=== PATIENT | male | born 1980 | race Caucasian/White ===

== ENCOUNTER → 2023-12-20 | Outpatient (CLI) | payer BC ==
[2023-12-20 09:41] LABS: HEMATOCRIT 32.7 % (42.0-52.0); HEMOGLOBIN 11.1 g/dL (13.5-18.0); MEAN PLATELET VOLUME 11.1 fl (7.4-10.4); RED BLOOD COUNT 3.33 M/mm3 (4.20-5.60); RED CELL DISTRIBUTION WIDTH 12.2 % (11.5-14.5); WHITE BLOOD COUNT 6.2 K/mm3 (4.8-10.8)
[2023-12-20 09:49] LABS: ALBUMIN 2.6 g/dL (3.5-5.0)
[2023-12-20 09:51] LABS: CALCIUM 8.2 mg/dL (8.3-10.5)
[2023-12-20 09:52] LABS: TOTAL PROTEIN 5.4 g/dL (6.4-8.3)
[2023-12-20 09:54] LABS: TOTAL BILIRUBIN 0.5 mg/dL (0.2-1.2)
[2023-12-20 22:06] LABS: HEPATITIS C ANTIBODY Negative (Negative)
== END ==
LOC: LAB 09:28
PROVIDERS: Family Medicine
DX: R60.1 Generalized edema (principal)

== ENCOUNTER 2023-12-24 18:11 | Emergency (ER) | payer BC ==
[~2023-12-24] VITALS: Ht 190.5 cm; Wt 84.5 kg
[2023-12-24 18:18] VITALS: BP 138/88
[2023-12-24 18:37] LABS: BASO # 0.02 K/mm3 (0.02-0.10); EOS # 0.01 K/mm3 (0.04-0.40); EOS % 0.1 % (0.0-4.0); HEMATOCRIT 30.1 % (42.0-52.0); HEMOGLOBIN 10.1 g/dL (13.5-18.0); LYMPH# 0.94 K/mm3 (1.50-4.00); MEAN CELL VOLUME 98 fl (78-100); MEAN CORPUSCULAR HEMOGLOBIN 33 pg (27-31); MEAN CORPUSCULAR HGB CONC 34 g/dL (33-37); MEAN PLATELET VOLUME 11.1 fl (7.4-10.4); MONO # 0.76 K/mm3 (0.20-0.80); NEU # 5.66 K/mm3 (1.40-6.50); PLATELET COUNT 129 K/mm3 (130-400); RED BLOOD COUNT 3.08 M/mm3 (4.20-5.60); RED CELL DISTRIBUTION WIDTH 11.9 % (11.5-14.5); WHITE BLOOD COUNT 7.4 K/mm3 (4.8-10.8)
[2023-12-24 18:44] LABS: ALBUMIN 2.4 g/dL (3.5-5.0)
[2023-12-24 18:45] LABS: CALCIUM 7.9 mg/dL (8.3-10.5)
[2023-12-24 18:47] LABS: TOTAL PROTEIN 5.1 g/dL (6.4-8.3)
[2023-12-24 18:48] LABS: TOTAL BILIRUBIN 0.8 mg/dL (0.2-1.2)
[2023-12-24] MEDS ORDERED: AMLODIPINE BESYL5 MG PO (21:15)
[2023-12-24] MEDS ORDERED: ZESTRIL20 M1 PO (21:16)
[2023-12-24] MEDS ORDERED: KEPPRA 500MG500 MG PO (21:16)
[2023-12-24] MEDS ORDERED: SODIUM CHLORI1000 M4 PO (21:19)
== END 2023-12-24 20:30 | disposition other institution (70) ==
LOC: ED 18:11
PROVIDERS: Family Medicine
DX: K70.0 Alcoholic fatty liver (principal); L03.116 Cellulitis of left lower limb; L03.115 Cellulitis of right lower limb; E87.1 Hypo-osmolality and hyponatremia; F17.210 Nicotine dependence, cigarettes, uncomplicated

== ENCOUNTER → 2024-01-12 | Outpatient (CLI) | payer BC ==
[~2024-01-12] MED LIST: AMLODIPINE BESYL5 MG PO; DICLOFENAC SOD100 M1 PO; FUROSEMIDE40 MG; KEPPRA 500MG500 MG PO; PANTOPRAZOLE SO40 MG PO; POTASSIUM CHLO20 ME4 PO; SLOW-MAG 106 MG1 ECT PO; SODIUM CHLORI1000 M4 PO; SPIRONOLACTONE50 M1 PO; VITAMIN D21250 MCG PO; VITAMIN D31250 MCG PO; VITAMIN K; VITAMIN K2100 MCG PO; WESTAB PLUS TA1 EACH PO; ZESTRIL20 M1 PO; vitamin d PO
[2024-03-02 12:10] LABS: PARTIAL THROMBOPLASTIN TIME 27.9 SECONDS (21.0-32.0); PROTHROMBIN TIME 14.4 SECONDS (9.0-12.0)
== END ==
LOC: LAB 08:30
PROVIDERS: Internal Medicine
DX: I10 Essential (primary) hypertension (principal); K90.9 Intestinal malabsorption, unspecified; S06.5X0S Traumatic subdural hemorrhage without loss of consciousness, sequela; R23.3 Spontaneous ecchymoses

== ENCOUNTER → 2024-01-28 | Outpatient (CLI) | payer BC ==
[2024-01-28 10:03] LABS: CALCIUM 7.7 mg/dL (8.3-10.5)
[2024-01-28 10:09] LABS: MAGNESIUM 1.52 mg/dL (1.60-2.60)
== END ==
LOC: LAB 09:42
PROVIDERS: Internal Medicine
DX: E83.42 Hypomagnesemia (principal)

== ENCOUNTER → 2024-02-09 | Outpatient (CLI) | payer BC ==
[~2024-02-09] MED LIST changes: -DICLOFENAC SOD100 M1 PO; -FUROSEMIDE40 MG; -PANTOPRAZOLE SO40 MG PO; -POTASSIUM CHLO20 ME4 PO; -SLOW-MAG 106 MG1 ECT PO; -SPIRONOLACTONE50 M1 PO; -VITAMIN D21250 MCG PO; -VITAMIN D31250 MCG PO; -VITAMIN K; -VITAMIN K2100 MCG PO; -WESTAB PLUS TA1 EACH PO; -vitamin d PO
[2024-02-09 08:25] LABS: BASO # 0.02 K/mm3 (0.02-0.10); EOS # 0.06 K/mm3 (0.04-0.40); HEMATOCRIT 28.4 % (42.0-52.0); HEMOGLOBIN 9.9 g/dL (13.5-18.0); LYMPH# 1.35 K/mm3 (1.50-4.00); MEAN CELL VOLUME 91 fl (78-100); MEAN CORPUSCULAR HEMOGLOBIN 32 pg (27-31); MEAN CORPUSCULAR HGB CONC 35 g/dL (33-37); MEAN PLATELET VOLUME 10.5 fl (7.4-10.4); MONO # 0.41 K/mm3 (0.20-0.80); NEU # 4.03 K/mm3 (1.40-6.50); PLATELET COUNT 133 K/mm3 (130-400); RED BLOOD COUNT 3.13 M/mm3 (4.20-5.60); RED CELL DISTRIBUTION WIDTH 13.2 % (11.5-14.5); WHITE BLOOD COUNT 5.9 K/mm3 (4.8-10.8)
[2024-02-09 08:30] LABS: ALBUMIN 2.4 g/dL (3.5-5.0)
[2024-02-09 08:32] LABS: CALCIUM 7.7 mg/dL (8.3-10.5)
[2024-02-09 08:33] LABS: TOTAL PROTEIN 5.4 g/dL (6.4-8.3)
[2024-02-09 08:35] LABS: TOTAL BILIRUBIN 0.6 mg/dL (0.2-1.2)
[2024-02-10 15:28] LABS: MAGNESIUM 1.4 mg/dL (1.60-2.60)
== END ==
LOC: LAB 08:14
PROVIDERS: Internal Medicine
DX: I10 Essential (primary) hypertension (principal)

== ENCOUNTER 2024-02-19 09:11 | Emergency (ER) | payer BC ==
[~2024-02-19] VITALS: Ht 190.5 cm; Wt 68.7 kg
[2024-02-19] MEDS ORDERED: DICLOFENAC SOD100 M1 PO (09:48)
[2024-02-19] MEDS ORDERED: POTASSIUM CHLO20 ME4 PO (09:48)
[2024-02-19 10:15] LABS: CALCIUM 7.6 mg/dL (8.3-10.5)
[2024-02-19 10:23] LABS: MAGNESIUM 1.2 mg/dL (1.60-2.60)
[2024-02-19] MEDS ORDERED: Dextrose/Magnesium Sulfate 100 ML IV ONE (10:45)
[2024-02-19] MEDS ORDERED: NS 1,000 ML IV SCH ×2 (10:45→14:00)
[2024-02-19 16:15] LABS: URINE APPEARANCE CLEAR (CLEAR); URINE BILIRUBIN NEGATIVE (NEGATIVE); URINE BLOOD NEGATIVE (NEGATIVE); URINE COLOR YELLOW (YELLOW); URINE GLUCOSE NEGATIVE (NEGATIVE); URINE KETONE NEGATIVE (NEGATIVE); URINE LEUKOCYTE ESTERASE NEGATIVE (NEGATIVE); URINE NITRATE NEGATIVE (NEGATIVE); URINE PROTEIN(semi-quant) NEGATIVE (NEGATIVE); URINE WBC 0-1 /hpf (0-3)
[2024-02-19 16:16] VITALS: BP 118/74
== END 2024-02-19 16:17 | disposition home or self-care (01) ==
LOC: ED 09:11
PROVIDERS: Family Medicine
DX: I95.1 Orthostatic hypotension (principal); E83.42 Hypomagnesemia; E87.1 Hypo-osmolality and hyponatremia; E86.9 Volume depletion, unspecified
CPT/HCPCS: J3475; J7030

== ENCOUNTER 2024-02-25 16:53 | Emergency (ER) | payer BC ==
[~2024-02-25] VITALS: Wt 69.6 kg
[~2024-02-25 16:53] MED LIST changes: -FUROSEMIDE40 MG; -Iohexol 350 - 100 ML VIAL IV ONE; -PANTOPRAZOLE SO40 MG PO; -SLOW-MAG 106 MG1 ECT PO; -SPIRONOLACTONE50 M1 PO; -VITAMIN D21250 MCG PO; -VITAMIN D31250 MCG PO; -VITAMIN K; -VITAMIN K2100 MCG PO; -WESTAB PLUS TA1 EACH PO; -vitamin d PO
[2024-02-25] MEDS ORDERED: Sodium Chloride 3% 500 ML IV SCH (17:15)
[2024-02-25] MEDS ORDERED: Dextrose/Magnesium Sulfate 100 ML IV SCH (17:15)
[2024-02-25] MEDS ORDERED: VITAMIN K (18:06)
[2024-02-25] MEDS ORDERED: vitamin d PO (18:06)
[2024-02-25] MEDS ORDERED: VITAMIN D31250 MCG PO (18:59)
[2024-02-25] MEDS ORDERED: VITAMIN K2100 MCG PO (19:01)
[2024-02-25] MEDS ORDERED: SPIRONOLACTONE50 M1 PO (19:03)
[2024-02-25] MEDS ORDERED: FUROSEMIDE40 MG (19:06)
[2024-02-25] MEDS ORDERED: PANTOPRAZOLE SO40 MG PO (19:07)
[2024-02-25] MEDS ORDERED: VITAMIN D21250 MCG PO (19:09)
[2024-02-25] MEDS ORDERED: SLOW-MAG 106 MG1 ECT PO (19:11)
[2024-02-25] MEDS ORDERED: WESTAB PLUS TA1 EACH PO (19:12)
[2024-02-25 19:40] LABS: CALCIUM 7.9 mg/dL (8.3-10.5)
[2024-02-25 20:19] LABS: URINE APPEARANCE CLEAR (CLEAR); URINE BILIRUBIN NEGATIVE (NEGATIVE); URINE BLOOD NEGATIVE (NEGATIVE); URINE COLOR YELLOW (YELLOW); URINE GLUCOSE 2+ (NEGATIVE); URINE KETONE NEGATIVE (NEGATIVE); URINE LEUKOCYTE ESTERASE NEGATIVE (NEGATIVE); URINE NITRATE NEGATIVE (NEGATIVE); URINE PROTEIN(semi-quant) NEGATIVE (NEGATIVE)
[2024-02-25 20:22] LABS: URINE WBC 0-1 /hpf (0-3)
[2024-02-25 21:00] VITALS: BP 118/75
== END 2024-02-25 21:45 | disposition short-term general hospital (02) ==
LOC: ED 16:53
PROVIDERS: Family Medicine
DX: S06.5XAA Traumatic subdural hemorrhage with loss of consciousness status unknown, initial encounter (principal); E87.1 Hypo-osmolality and hyponatremia; K70.40 Alcoholic hepatic failure without coma; F10.20 Alcohol dependence, uncomplicated; E87.6 Hypokalemia; E83.42 Hypomagnesemia; R74.01 Elevation of levels of liver transaminase levels; R74.8 Abnormal levels of other serum enzymes; Y90.7 Blood alcohol level of 200-239 mg/100 ml; W19.XXXA Unspecified fall, initial encounter
CPT/HCPCS: J3475; J7131

== ENCOUNTER → 2024-02-25 | Outpatient (CLI) | payer BC ==
[~2024-02-25] MED LIST changes: +DICLOFENAC SOD100 M1 PO; +FUROSEMIDE40 MG; +Iohexol 350 - 100 ML VIAL IV ONE; +PANTOPRAZOLE SO40 MG PO; +POTASSIUM CHLO20 ME4 PO; +SLOW-MAG 106 MG1 ECT PO; +SPIRONOLACTONE50 M1 PO; +VITAMIN D21250 MCG PO; +VITAMIN D31250 MCG PO; +VITAMIN K; +VITAMIN K2100 MCG PO; +WESTAB PLUS TA1 EACH PO; +vitamin d PO
[2024-02-25 12:50] LABS: BASO # 0.01 K/mm3 (0.02-0.10); HEMATOCRIT 26.5 % (42.0-52.0); HEMOGLOBIN 9.6 g/dL (13.5-18.0); LYMPH# 0.81 K/mm3 (1.50-4.00); MEAN CELL VOLUME 88 fl (78-100); MEAN CORPUSCULAR HEMOGLOBIN 32 pg (27-31); MEAN CORPUSCULAR HGB CONC 36 g/dL (33-37); MEAN PLATELET VOLUME 10.6 fl (7.4-10.4); MONO # 0.96 K/mm3 (0.20-0.80); NEU # 11.94 K/mm3 (1.40-6.50); PLATELET COUNT 141 K/mm3 (130-400); RED BLOOD COUNT 3.03 M/mm3 (4.20-5.60); RED CELL DISTRIBUTION WIDTH 14.5 % (11.5-14.5); WHITE BLOOD COUNT 13.8 K/mm3 (4.8-10.8)
[2024-02-25 12:54] LABS: ALBUMIN 2.5 g/dL (3.5-5.0)
[2024-02-25 12:56] LABS: CALCIUM 8.1 mg/dL (8.3-10.5)
[2024-02-25 12:59] LABS: TOTAL BILIRUBIN 1.4 mg/dL (0.2-1.2)
[2024-02-25 13:03] LABS: MAGNESIUM 1.15 mg/dL (1.60-2.60)
== END ==
LOC: RAD 10:00
PROVIDERS: Internal Medicine
DX: R18.8 Other ascites (principal); S22.32XD Fracture of one rib, left side, subsequent encounter for fracture with routine healing; D64.9 Anemia, unspecified; I10 Essential (primary) hypertension; X58.XXXD Exposure to other specified factors, subsequent encounter
CPT/HCPCS: Q9967

== ENCOUNTER → 2024-03-30 | Outpatient (CLI) | payer BC ==
[~2024-03-30] MED LIST changes: +FUROSEMIDE40 MG; +PANTOPRAZOLE SO40 MG PO; +SLOW-MAG 106 MG1 ECT PO; +SPIRONOLACTONE50 M1 PO; +VITAMIN D21250 MCG PO; +VITAMIN D31250 MCG PO; +VITAMIN K; +VITAMIN K2100 MCG PO; +WESTAB PLUS TA1 EACH PO; +vitamin d PO
[2024-03-30 11:51] LABS: CALCIUM 8.5 mg/dL (8.3-10.5)
[2024-03-30 11:57] LABS: MAGNESIUM 1.8 mg/dL (1.60-2.60)
== END ==
LOC: LAB 11:10
PROVIDERS: Internal Medicine
DX: I10 Essential (primary) hypertension (principal)

== ENCOUNTER 2024-04-13 14:15 | Outpatient (RCR) | payer BC ==
[2024-04-18] MEDS ORDERED: ALBUMINAR-12.5 GM/50 IV (13:07)
[2024-04-18] MEDS ORDERED: HYDROXYZINE PAM25 M1 PO (13:16)
[2024-04-18] MEDS ORDERED: FLOMAX0.4 MG PO (13:27)
[2024-04-18] MEDS ORDERED: B-1100 M1 PO (13:28)
[2024-04-18] MEDS ORDERED: VITAMIN A3000 MC2 PO (13:29)
[2024-04-18] MEDS ORDERED: XIFAXAN550 MG PO (13:33)
== END 2024-04-15 ==
LOC: PT
DX: M62.81 Muscle weakness (generalized) (principal)

== ENCOUNTER 2024-04-19 09:00 | Outpatient (RCR) | payer BC ==
[~2024-04-19 09:00] MED LIST changes: +ALBUMINAR-12.5 GM/50 IV; +B-1100 M1 PO; +FLOMAX0.4 MG PO; +HYDROXYZINE PAM25 M1 PO; +VITAMIN A3000 MC2 PO; +XIFAXAN550 MG PO
== END 2024-05-15 | disposition home or self-care (01) ==
LOC: PT
DX: M62.81 Muscle weakness (generalized) (principal)

== ENCOUNTER 2024-05-17 08:00 | Outpatient (RCR) | payer BC | END 2024-06-15 | disposition home or self-care (01) | LOC: PT | DX: M62.81 Muscle weakness (generalized) (principal) ==

== ENCOUNTER → 2024-06-08 | Outpatient (CLI) | payer BC ==
[2024-06-08 08:54] LABS: BASO # 0.01 K/mm3 (0.02-0.10); HEMATOCRIT 29.9 % (42.0-52.0); LYMPH# 0.78 K/mm3 (1.50-4.00); MEAN CELL VOLUME 90 fl (78-100); MEAN CORPUSCULAR HEMOGLOBIN 30 pg (27-31); MEAN CORPUSCULAR HGB CONC 33 g/dL (33-37); MEAN PLATELET VOLUME 9.4 fl (7.4-10.4); MONO # 1.01 K/mm3 (0.20-0.80); NEU # 12.71 K/mm3 (1.40-6.50); PLATELET COUNT 304 K/mm3 (130-400); RED BLOOD COUNT 3.33 M/mm3 (4.20-5.60); RED CELL DISTRIBUTION WIDTH 15.3 % (11.5-14.5); WHITE BLOOD COUNT 14.5 K/mm3 (4.8-10.8)
[2024-06-08 09:05] LABS: ALBUMIN 2.3 g/dL (3.5-5.0)
[2024-06-08 09:06] LABS: CALCIUM 7.9 mg/dL (8.3-10.5)
[2024-06-08 09:08] LABS: TOTAL PROTEIN 4.6 g/dL (6.4-8.3)
[2024-06-08 09:09] LABS: TOTAL BILIRUBIN 0.5 mg/dL (0.2-1.2)
[2024-06-08 09:19] LABS: PROTHROMBIN TIME 15.2 SECONDS (9.0-12.0)
== END ==
LOC: LAB 08:34
PROVIDERS: Nurse Practitioner
DX: K70.31 Alcoholic cirrhosis of liver with ascites (principal); E43 Unspecified severe protein-calorie malnutrition; E78.1 Pure hyperglyceridemia

== ENCOUNTER → 2024-07-07 | Outpatient (CLI) | payer BC | LOC: LAB 10:58 | DX: Z02.83 Encounter for blood-alcohol and blood-drug test (principal); K70.31 Alcoholic cirrhosis of liver with ascites ==

== ENCOUNTER → 2024-07-20 | Outpatient (CLI) | payer BC | LOC: LAB 13:26 | DX: C88.00 Waldenstrom macroglobulinemia not having achieved remission (principal); D61.818 Other pancytopenia; R18.8 Other ascites ==

== ENCOUNTER → 2024-07-31 | Outpatient (CLI) | payer BC | LOC: LAB 11:27 | DX: Z02.83 Encounter for blood-alcohol and blood-drug test (principal); K70.31 Alcoholic cirrhosis of liver with ascites ==

== ENCOUNTER → 2024-08-22 | Outpatient (CLI) | payer BC ==
[2024-08-22 10:05] LABS: BASO # 0.02 K/mm3 (0.02-0.10); EOS # 0.13 K/mm3 (0.04-0.40); EOS % 1.8 % (0.0-4.0); HEMATOCRIT 35.1 % (42.0-52.0); HEMOGLOBIN 11.3 g/dL (13.5-18.0); LYMPH# 1.63 K/mm3 (1.50-4.00); MEAN CELL VOLUME 94 fl (78-100); MEAN CORPUSCULAR HEMOGLOBIN 30 pg (27-31); MEAN CORPUSCULAR HGB CONC 32 g/dL (33-37); MEAN PLATELET VOLUME 10.3 fl (7.4-10.4); MONO # 0.72 K/mm3 (0.20-0.80); NEU # 4.65 K/mm3 (1.40-6.50); PLATELET COUNT 280 K/mm3 (130-400); RED BLOOD COUNT 3.74 M/mm3 (4.20-5.60); RED CELL DISTRIBUTION WIDTH 13.5 % (11.5-14.5); WHITE BLOOD COUNT 7.2 K/mm3 (4.8-10.8)
[2024-08-22 10:07] LABS: ALBUMIN 4.2 g/dL (3.5-5.0)
[2024-08-22 10:09] LABS: CALCIUM 10.1 mg/dL (8.3-10.5)
[2024-08-22 10:10] LABS: TOTAL PROTEIN 6.9 g/dL (6.4-8.3)
[2024-08-22 10:12] LABS: TOTAL BILIRUBIN 0.3 mg/dL (0.2-1.2)
[2024-08-22 10:17] LABS: MAGNESIUM 1.38 mg/dL (1.60-2.60)
[2024-08-22 23:48] LABS: FOLATE (FOLIC ACID) >20.0 ng/mL (2.0-20.0)
[2024-08-25 14:09] LABS: VITAMIN B1 152.1 nmol/L (())
== END ==
LOC: LAB 08:22
PROVIDERS: Internal Medicine
DX: Z02.83 Encounter for blood-alcohol and blood-drug test (principal); K70.31 Alcoholic cirrhosis of liver with ascites

== ENCOUNTER → 2024-09-01 | Outpatient (CLI) | payer BC | LOC: LAB 10:57 | DX: K70.31 Alcoholic cirrhosis of liver with ascites (principal) ==

== ENCOUNTER → 2024-09-06 | Outpatient (CLI) | payer BC ==
[2024-09-06 16:44] LABS: BASO # 0.03 K/mm3 (0.02-0.10); EOS # 0.15 K/mm3 (0.04-0.40); EOS % 2.2 % (0.0-4.0); HEMATOCRIT 33.2 % (42.0-52.0); HEMOGLOBIN 10.6 g/dL (13.5-18.0); LYMPH# 1.83 K/mm3 (1.50-4.00); MEAN CELL VOLUME 93 fl (78-100); MEAN CORPUSCULAR HEMOGLOBIN 30 pg (27-31); MEAN CORPUSCULAR HGB CONC 32 g/dL (33-37); MEAN PLATELET VOLUME 10.2 fl (7.4-10.4); MONO # 0.66 K/mm3 (0.20-0.80); NEU # 4.02 K/mm3 (1.40-6.50); PLATELET COUNT 256 K/mm3 (130-400); RED BLOOD COUNT 3.57 M/mm3 (4.20-5.60); RED CELL DISTRIBUTION WIDTH 13.3 % (11.5-14.5); WHITE BLOOD COUNT 6.7 K/mm3 (4.8-10.8)
[2024-09-06 16:46] LABS: CALCIUM 9.6 mg/dL (8.3-10.5)
[2024-09-06 16:47] LABS: TOTAL PROTEIN 6.9 g/dL (6.4-8.3)
[2024-09-06 16:49] LABS: TOTAL BILIRUBIN 0.3 mg/dL (0.2-1.2)
[2024-09-06 17:10] LABS: PROTHROMBIN TIME 13.3 SECONDS (9.0-12.0)
== END ==
LOC: LAB 16:01
PROVIDERS: Nurse Practitioner
DX: Z02.83 Encounter for blood-alcohol and blood-drug test (principal); K72.90 Hepatic failure, unspecified without coma; K70.31 Alcoholic cirrhosis of liver with ascites; K86.2 Cyst of pancreas

== ENCOUNTER → 2024-09-15 | Outpatient (CLI) | payer BC ==
[~2024-09-15] MED LIST changes: +Gadoterate 20 ML VIAL IV ONE
== END ==
LOC: RAD 11:52
DX: K72.90 Hepatic failure, unspecified without coma (principal); K70.31 Alcoholic cirrhosis of liver with ascites; K86.2 Cyst of pancreas
CPT/HCPCS: A9575

== ENCOUNTER → 2024-09-22 | Outpatient (CLI) | payer BC ==
[~2024-09-22] MED LIST changes: -Gadoterate 20 ML VIAL IV ONE
[2024-09-22 10:15] LABS: BASO # 0.04 K/mm3 (0.02-0.10); EOS # 0.18 K/mm3 (0.04-0.40); EOS % 2.7 % (0.0-4.0); HEMATOCRIT 38.8 % (42.0-52.0); HEMOGLOBIN 12.8 g/dL (13.5-18.0); LYMPH# 2.01 K/mm3 (1.50-4.00); MEAN CELL VOLUME 90 fl (78-100); MEAN CORPUSCULAR HEMOGLOBIN 30 pg (27-31); MEAN CORPUSCULAR HGB CONC 33 g/dL (33-37); MEAN PLATELET VOLUME 10.4 fl (7.4-10.4); MONO # 0.63 K/mm3 (0.20-0.80); NEU # 3.67 K/mm3 (1.40-6.50); PLATELET COUNT 255 K/mm3 (130-400); RED BLOOD COUNT 4.29 M/mm3 (4.20-5.60); RED CELL DISTRIBUTION WIDTH 12.7 % (11.5-14.5); WHITE BLOOD COUNT 6.6 K/mm3 (4.8-10.8)
[2024-09-22 10:23] LABS: ALBUMIN 4.5 g/dL (3.5-5.0)
[2024-09-22 10:24] LABS: CALCIUM 10.4 mg/dL (8.3-10.5)
[2024-09-22 10:25] LABS: TOTAL PROTEIN 7.6 g/dL (6.4-8.3)
[2024-09-22 10:27] LABS: TOTAL BILIRUBIN 0.4 mg/dL (0.2-1.2)
[2024-09-22 10:32] LABS: MAGNESIUM 1.38 mg/dL (1.60-2.60)
== END ==
LOC: LAB 09:59
PROVIDERS: Internal Medicine
DX: K70.31 Alcoholic cirrhosis of liver with ascites (principal); K72.90 Hepatic failure, unspecified without coma; K86.2 Cyst of pancreas